=== PATIENT | female | born 1990 | race Caucasian/White ===

== ENCOUNTER 2019-08-02 11:14 | Emergency (ER) | payer MEDICAID ==
[~2019-08-02] VITALS: Ht 162.6 cm; Wt 57.7 kg
[2019-08-02 11:40] VITALS: BP 144/104
[2019-08-02] MEDS ORDERED: METOCLOPRAMIDE HCL 10 MG TABLET PO ONE (12:45)
[2019-08-02] MEDS ORDERED: IBUPROFEN 400 MG TABLET PO ONE (13:00)
== END 2019-08-02 14:40 | disposition home or self-care (01) ==
LOC: EMS 11:16
DX: R51 Headache (principal); F41.9 Anxiety disorder, unspecified; I10 Essential (primary) hypertension
CPT/HCPCS: 70450